=== PATIENT | male | born 1975 | race Caucasian/White ===

== ENCOUNTER 2022-03-29 02:31 | Emergency (ER) | payer MEDICAID ==
[~2022-03-29] VITALS: Ht 172.7 cm; Wt 68.2 kg
[2022-03-29] MEDS ORDERED: OLAN10TA74 PO (02:38)
[2022-03-29] MEDS ORDERED: OLANZapine 5 MG TABLET PO ONE (08:00)
[2022-03-29 08:45] VITALS: BP 140/80
== END 2022-03-29 08:47 | disposition home or self-care (01) ==
LOC: EMS 02:36
DX: F31.9 Bipolar disorder, unspecified (principal); F20.9 Schizophrenia, unspecified; F10.20 Alcohol dependence, uncomplicated; F15.10 Other stimulant abuse, uncomplicated; F17.210 Nicotine dependence, cigarettes, uncomplicated
CPT/HCPCS: 99283

== ENCOUNTER 2022-04-25 18:55 | Emergency (ER) | payer MEDICAID ==
[~2022-04-25] VITALS: Ht 170.2 cm; Wt 77.3 kg
[~2022-04-25 18:55] MED LIST: OLAN10TA74 PO
[2022-04-25 19:00] VITALS: BP 142/80
[2022-04-25] MEDS ORDERED: POVIDONE-IODINE 10% 120 ML SOLUTION TP ONE (19:45)
[2022-04-25] MEDS ORDERED: OLANZapine 5 MG TABLET PO ONE (21:00)
[2022-04-25] MEDS ORDERED: BACITRACIN 0.9 GM PACKET OINTMENT TP ONE (21:00)
[2022-04-25] MEDS ORDERED: OLAN10TA74 PO (21:06)
== END 2022-04-25 21:30 | disposition home or self-care (01) ==
LOC: EMS 18:55
DX: S91.109A Unspecified open wound of unspecified toe(s) without damage to nail, initial encounter (principal); F20.9 Schizophrenia, unspecified; F31.9 Bipolar disorder, unspecified; F10.20 Alcohol dependence, uncomplicated; F15.10 Other stimulant abuse, uncomplicated; F17.210 Nicotine dependence, cigarettes, uncomplicated; W22.8XXA Striking against or struck by other objects, initial encounter; Y93.89 Activity, other specified; Y92.89 Other specified places as the place of occurrence of the external cause; Y99.8 Other external cause status
CPT/HCPCS: 99284

== ENCOUNTER 2022-05-29 02:30 | Emergency (ER) | payer MEDICAID ==
[~2022-05-29] VITALS: Ht 170.2 cm; Wt 77.3 kg
[2022-05-29 03:07] LABS: BASOPHILS % (AUTO) 0.4 % (0.0-2.0); EOSINOPHILS % (AUTO) 0.9 % (1.0-6.0); HEMATOCRIT 37.2 % (41-53); HEMOGLOBIN 12.5 g/dL (13.5-17.5); LYMPHOCYTES # (AUTO) 1.3 K/uL (1.0-4.8); LYMPHOCYTES % (AUTO) 9.2 % (22.0-44.0); MEAN CORPUSCULAR HEMOGLOBIN 28.3 pg (26.0-34.0); MEAN CORPUSCULAR HGB CONC 33.6 G/dL (31.0-37.0); MEAN CORPUSCULAR VOLUME 84 fL (80-100); MONOCYTES # (AUTO) 1.3 K/uL (0.1-1.0); MONOCYTES % (AUTO) 8.8 % (2.0-9.0); NEUTROPHILS # (AUTO) 11.7 K/uL (1.8-7.7); NEUTROPHILS % (AUTO) 80.7 % (40.0-70.0); PLATELET COUNT (AUTO) 330 K/uL (150-450); RED BLOOD CELL COUNT(AUTO) 4.41 MIL/uL (4.50-5.90); RED CELL DISTRIBUTION WIDTH 13.3 % (11.5-14.5)
[2022-05-29 03:14] LABS: ANION GAP 7 mmol/L (8-16); CALCIUM, TOTAL 8.2 mg/dL (8.8-10.5); CARBON DIOXIDE 26 mmol/L (22-29); CHLORIDE 98 mmol/L (98-107); CREATININE 1.19 mg/dL (0.60-1.30); GLUCOSE,RANDOM 189 mg/dL (70-110); SODIUM SERUM 131 mmol/L (136-145); UREA NITROGEN, BLOOD 14 mg/dL (7-18)
[2022-05-29 03:18] LABS: GLOMERULAR FILTR. RATE CALC > 60 mL/min (>60)
[2022-05-29 03:20] LABS: ALANINE AMINOTRANSFERASE 35 U/L (12-78); ALBUMIN 3.5 g/dL (3.4-5.0); ALKALINE PHOSPHATASE 84 U/L (46-116); ASPARTATE AMINOTRANSFERASE 39 U/L (15-37); BILIRUBIN,TOTAL 0.6 mg/dL (0.1-1.0); TOTAL PROTEIN, SERUM 6.8 g/dL (6.4-8.2)
[2022-05-29] MEDS ORDERED: LORazepam 2 MG TABLET PO ONE (03:45)
[2022-05-29] MEDS ORDERED: OLANZapine 5 MG RAPDIS TABLET PO ONE (03:45)
[2022-05-29 11:35] VITALS: BP 137/75
== END 2022-05-29 11:49 | disposition home or self-care (01) ==
LOC: EMS 02:31
DX: R41.82 Altered mental status, unspecified (principal); E87.6 Hypokalemia; F20.9 Schizophrenia, unspecified; F31.9 Bipolar disorder, unspecified; F15.10 Other stimulant abuse, uncomplicated; F10.20 Alcohol dependence, uncomplicated; F17.210 Nicotine dependence, cigarettes, uncomplicated
CPT/HCPCS: 99284; 80053; 85025; 36415; G0480; 99283

== ENCOUNTER 2022-07-16 00:41 | Emergency (ER) | payer MEDICAID ==
[~2022-07-16] VITALS: Ht 180.3 cm; Wt 77.3 kg
[2022-07-16] MEDS ORDERED: DiphenhydrAMINE HCL 50 MG/ML VIAL IM ONE (04:00)
[2022-07-16] MEDS ORDERED: HALOPERIDOL LACTATE 5 MG/ML VIAL IM ONE (04:00)
[2022-07-16] MEDS ORDERED: LORazepam 2 MG/ML VIAL IM ONE (04:00)
[2022-07-16 04:08] LABS: AMPHET/METH SCREEN,URINE POSITIVE (NEGATIVE); BARBITURATE SCREEN, URINE NEGATIVE (NEGATIVE); BENZODIAZEPINES SCREEN,URINE POSITIVE (NEGATIVE); CANNABINOID SCREEN,URINE NEGATIVE (NEGATIVE); COCAINE SCREEN,URINE NEGATIVE (NEGATIVE); METHADONE SCREEN, URINE NEGATIVE (NEGATIVE); OPIATE SCREEN,URINE NEGATIVE (NEGATIVE)
[2022-07-16 04:09] LABS: PHENCYCLIDINE SCREEN,URINE NEGATIVE (NEGATIVE)
[2022-07-16 05:21] LABS: BASOPHILS % (AUTO) 0.2 % (0.0-2.0); EOSINOPHILS % (AUTO) 0.1 % (1.0-6.0); HEMATOCRIT 38.5 % (41-53); HEMOGLOBIN 12.6 g/dL (13.5-17.5); LYMPHOCYTES % (AUTO) 7.2 % (22.0-44.0); MEAN CORPUSCULAR HEMOGLOBIN 28.1 pg (26.0-34.0); MEAN CORPUSCULAR HGB CONC 32.7 G/dL (31.0-37.0); MEAN CORPUSCULAR VOLUME 86 fL (80-100); MONOCYTES # (AUTO) 1.1 K/uL (0.1-1.0); MONOCYTES % (AUTO) 7.9 % (2.0-9.0); NEUTROPHILS # (AUTO) 11.9 K/uL (1.8-7.7); NEUTROPHILS % (AUTO) 84.6 % (40.0-70.0); PLATELET COUNT (AUTO) 243 K/uL (150-450); RED BLOOD CELL COUNT(AUTO) 4.48 MIL/uL (4.50-5.90); RED CELL DISTRIBUTION WIDTH 13.8 % (11.5-14.5)
[2022-07-16 05:30] LABS: ANION GAP 9 mmol/L (8-16); CALCIUM, TOTAL 8.9 mg/dL (8.8-10.5); CARBON DIOXIDE 24 mmol/L (22-29); CHLORIDE 110 mmol/L (98-107); CREATININE 0.77 mg/dL (0.60-1.30); GLUCOSE,RANDOM 98 mg/dL (70-110); POTASSIUM 3.5 mmol/L (3.5-5.1); SODIUM SERUM 143 mmol/L (136-145); UREA NITROGEN, BLOOD 22 mg/dL (7-18)
[2022-07-16 05:31] LABS: GLOMERULAR FILTR. RATE CALC > 60 mL/min (>60)
[2022-07-16 05:38] LABS: ALANINE AMINOTRANSFERASE 37 U/L (12-78); ALBUMIN 3.6 g/dL (3.4-5.0); ALKALINE PHOSPHATASE 73 U/L (46-116); ASPARTATE AMINOTRANSFERASE 66 U/L (15-37); BILIRUBIN,TOTAL 0.8 mg/dL (0.1-1.0)
[2022-07-16 06:40] VITALS: BP 124/79
[2022-07-16 08:47] LABS: COVID AG,FIA SOURCE NASOPHARYNGEAL
== END 2022-07-16 09:30 | disposition home or self-care (01) ==
LOC: EMS 00:41
DX: F15.10 Other stimulant abuse, uncomplicated (principal); Z20.822 Contact with and (suspected) exposure to COVID-19; F23 Brief psychotic disorder; F31.9 Bipolar disorder, unspecified; F10.20 Alcohol dependence, uncomplicated; F17.210 Nicotine dependence, cigarettes, uncomplicated
CPT/HCPCS: 99284; 87426; 80053; 85025; 36415; 96372; 80307; G0480; J1200; J1630; J2060

== ENCOUNTER 2023-11-10 11:26 | Emergency (ER) | payer MEDICAID ==
[~2023-11-10] VITALS: Ht 177.8 cm; Wt 77.3 kg
[2023-11-10 11:30] VITALS: BP 133/66; PULSE 94; RESP 18; TEMP 98.7
== END 2023-11-10 16:29 | disposition left against medical advice (07) ==
LOC: EMS 11:26
DX: S60.021A Contusion of right index finger without damage to nail, initial encounter (principal); Z53.21 Procedure and treatment not carried out due to patient leaving prior to being seen by health care provider; X58.XXXA Exposure to other specified factors, initial encounter; Y93.89 Activity, other specified; Y92.89 Other specified places as the place of occurrence of the external cause; Y99.8 Other external cause status
CPT/HCPCS: 99281; Z7502

== ENCOUNTER 2024-02-29 17:14 | Emergency (ER) | payer MEDICAID ==
[~2024-02-29] VITALS: Ht 177.8 cm; Wt 77.2 kg
[2024-02-29 17:39] VITALS: BP 136/84; PULSE 75; RESP 20; TEMP 96.6
[2024-02-29] MEDS ORDERED: BENZ1TAB84 PO (19:46)
[2024-02-29] MEDS: DiphenhydrAMINE HCL 25 MG CAPSULE PO ONE (19:51)
[2024-02-29] MEDS: BENZTROPINE MESYLATE 1 MG/ML 2 ML VIAL IM ONE (19:51)
== END 2024-02-29 20:17 | disposition home or self-care (01) ==
LOC: EMS 17:18
DX: G24.01 Drug induced subacute dyskinesia (principal); F20.9 Schizophrenia, unspecified; F31.9 Bipolar disorder, unspecified; F17.210 Nicotine dependence, cigarettes, uncomplicated; F15.90 Other stimulant use, unspecified, uncomplicated
CPT/HCPCS: 99283; 96372; J0515

== ENCOUNTER 2024-04-23 14:09 | Emergency (ER) | payer MEDICAID ==
[~2024-04-23] VITALS: Ht 162.6 cm; Wt 75.0 kg
[~2024-04-23 14:09] MED LIST changes: +BENZ-247 PO; -OLAN10TA74 PO
[2024-04-23 14:13] VITALS: BP 125/84; PULSE 104; RESP 16; TEMP 99.4
== END 2024-04-23 16:05 | disposition left against medical advice (07) ==
LOC: EMS 14:09
DX: M79.641 Pain in right hand (principal); Z53.21 Procedure and treatment not carried out due to patient leaving prior to being seen by health care provider

== ENCOUNTER 2024-08-19 15:20 | Emergency (ER) | payer MEDICAID ==
[~2024-08-19] VITALS: Ht 170.2 cm; Wt 75.0 kg
[2024-08-19 15:29] VITALS: BP 127/98; PULSE 92; RESP 18; TEMP 98.9; O2SAT 100
[2024-08-19] MEDS ORDERED: OLAN20TA82 PO (15:33)
== END 2024-08-19 16:43 | disposition left against medical advice (07) ==
LOC: EMS 15:22
DX: R46.3 Overactivity (principal); Z53.21 Procedure and treatment not carried out due to patient leaving prior to being seen by health care provider

== ENCOUNTER 2025-06-12 19:13 | Emergency (ER) | payer MEDICAID ==
[~2025-06-12] VITALS: Ht 175.3 cm; Wt 70.5 kg
[~2025-06-12 19:13] MED LIST changes: -BENZ-247 PO; +OLAN20TA82 PO
[2025-06-12 19:36] VITALS: BP 116/98; PULSE 120; RESP 16; TEMP 98; O2SAT 98
== END 2025-06-12 21:09 | disposition left against medical advice (07) ==
LOC: EMS 19:13
DX: S61.212A Laceration without foreign body of right middle finger without damage to nail, initial encounter (principal); Z53.21 Procedure and treatment not carried out due to patient leaving prior to being seen by health care provider; W45.8XXA Other foreign body or object entering through skin, initial encounter; Y93.89 Activity, other specified; Y92.89 Other specified places as the place of occurrence of the external cause; Y99.8 Other external cause status

== ENCOUNTER 2025-06-15 10:19 | Emergency (ER) | payer MEDICAID ==
[~2025-06-15] VITALS: Ht 167.6 cm; Wt 56.8 kg
[2025-06-15 10:21] VITALS: BP 106/81; PULSE 108; RESP 20; TEMP 98.9; O2SAT 99
[2025-06-15] MEDS ORDERED: HALO2 PO (10:23)
[2025-06-15] MEDS ORDERED: CEPH-558 PO (10:41)
[2025-06-15] MEDS ORDERED: SULF-261 PO (10:41)
[2025-06-15] MEDS: BACITRACIN 28 GM OINTMENT TP ONE (10:47)
[2025-06-15] MEDS: CEPHALEXIN MONOHYDRATE 500 MG CAPSULE PO ONE (10:47)
[2025-06-15] MEDS: PERTUSS(ACELL),DIPH,TET/PF 0.5 ML SYRINGE [ADULT] IM. ONE (10:47)
[2025-06-15] MEDS: SULFAMETHOX/TRIMETH DS 800-160 MG/TABLET PO ONE (10:47)
== END 2025-06-15 11:00 | disposition home or self-care (01) ==
LOC: EMS 10:22
DX: S61.202A Unspecified open wound of right middle finger without damage to nail, initial encounter (principal); F20.9 Schizophrenia, unspecified; F31.9 Bipolar disorder, unspecified; F17.210 Nicotine dependence, cigarettes, uncomplicated; F15.90 Other stimulant use, unspecified, uncomplicated; W26.8XXA Contact with other sharp object(s), not elsewhere classified, initial encounter; Y93.89 Activity, other specified; Y92.89 Other specified places as the place of occurrence of the external cause; Y99.8 Other external cause status
CPT/HCPCS: 90471; 90715; 99284